=== PATIENT | male | born 1930 | race Caucasian/White ===

== ENCOUNTER 2018-02-15 20:05 | Inpatient (IN) | payer OTHER ==
--- NOTE | 2018-02-15 20:17 | EDPHY ---
H & P Stated Complaint: c/o chest pressure into L shoulder/sob x 1 day Time Seen by Provider: 02/15/18 20:17 HPI/ROS: CHIEF COMPLAINT: Chest pressure, rapid heart rate HISTORY OF PRESENT ILLNESS: The patient is an anticoagulated 87 y/o male with a history of atrial fibrillation arriving with his complaining of chest pressure and sensation of a rapid heart rate worsening over the last day. He first noticed feeling lightheaded and dizzy upon standing up from a chair yesterday. He then developed mild shortness of breath and for the last 12 hours he's had chest pressure and mild shortness of breath. He describes a "heavy, bloated indigestion feeling here," gesturing to his chest, in spite of not eating much recently. He took Zantac without improvement. He says he completed a 48-hour Holter monitor last week that he does not yet know the results of and completed an echocardiogram this morning. He is compliant with all his medications and additionally took 324mg of aspirin prior to leaving his house tonight. He has no history of prior MIs. REVIEW OF SYSTEMS: A ten system review of systems was performed and is negative with the exception of the items mentioned in the HPI. Baseline leg swelling. Past medical history: 1. Hypothyroidism 2. BPH 3. Atrial fibrillation 3. Chronic kidney disease 4. DVT 5. Hyperlipidemia 6. Nephrolithiasis 7. Diastolic dysfunction Past surgical history: 1. Bilateral knee surgery 2. Bilateral hip surgery 3. Appendectomy 4. Cholecystectomy 5. Cataract surgery Family history: Noncontributory Social history: , at bedside. Nonsmoker. Retired. [employer] Attendant: Dr. Kumar. Prior medical records reviewed including admission 08/26/15 for chest pain. General Appearance: Alert. Vital signs reviewed. HR 120. Eyes: Pupils equal and round, no conjunctival injection, no discharge. Anicteric. ENT, Mouth: Mucous membranes are moist, no oropharyngeal erythema or edema. Neck: No lymphadenopathy, supple. Respiratory: Lungs are clear to auscultation; no wheezes, rales, or rhonchi. Cardiovascular: Tachycardic rate and rhythm; no murmur, rub, or gallop. Gastrointestinal: Abdomen is soft and nontender, no masses or organomegaly. Skin: Warm and dry, no rashes on exposed skin, normal color. Back: Nontender to palpation over the thoracolumbar spine. No CVAT. Extremities: No lower extremity edema, no calf tenderness or swelling. Neurological: Alert and oriented. Moving all four extremities easily and equally. Psychiatric: Normal affect. - Personal History Tetanus Vaccine Date: 2007 - Medical/Surgical History Hx Asthma: No Hx Chronic Respiratory Disease: No Hx Diabetes: No Hx Cardiac Disease: Yes Hx Renal Disease: Yes Hx Cirrhosis: No Hx Alcoholism: No Hx HIV/AIDS: No Hx Splenectomy or Spleen Trauma: No Other PMH: Diverticulosis, Afib with cardioversion, Aortic Aneurysm, mass L kidney, Kidney stones, Macular degeneration, high cholesterol, Appy, cholecystectomy, bilat knee replacement, left hip replacement. - Social History Smoking Status: Never smoked Constitutional: Initial Vital Signs Heart Rate 114 H 02/15/18 20:10 Respiratory Rate 16 02/15/18 20:10 Blood Pressure 137/98 H 02/15/18 20:10 O2 Sat (%) 98 02/15/18 20:10 O2 Delivery Mode Room Air Allergies/Adverse Reactions: Sulfa (Sulfonamide Antibiotics) Allergy (Intermediate, Verified 02/15/18 20:14) mouth ulcers hydrocodone bitartrate [From Vicodin] Allergy (Mild, Verified 02/15/18 20:14) Rash Home Medications: Medication Instructions Recorded Tamsulosin HCl [Flomax 0.4 MG (*)] 0.8 mg PO HS 01/04/13 Atorvastatin Calcium [Lipitor 10 10 mg PO HS 02/04/13 mg (*)] Dutasteride [Avodart 0.5 MG (*)] 0.5 mg PO HS 02/04/13 Levothyroxine [Synthroid 150 mcg 150 mcg PO DAILY 03/06/14 (*)] Acetaminophen [Tylenol 325mg (*)] 325 - 650 mg PO Q4 PRN #0 tab 03/23/14 Aspirin EC [Aspirin EC 81 mg (*)] 81 mg PO HS 08/26/15 Rivaroxaban [Xarelto] 20 mg PO DAILY18 #30 tab 08/27/15 Mirabegron [Myrbetriq] 25 mg PO DAILY 02/15/18 Metoprolol Tartrate [Lopressor 25 25 mg PO BID #60 tab 02/18/18 mg (*)] diphenhydrAMINE [Benadryl Cream] 1 maeve TP Q6 PRN cream 02/18/18 Medical Decision Making - Diagnostics Imaging: I viewed and interpreted images myself ED Course/Re-evaluation: This is an anticoagulated 87 y/o male with a history of atrial fibrillation who presents with a 1-day history of chest pressure, rapid heart rate, and dyspnea. His heart rate is rapid around 120 on exam. He is otherwise well-appearing, but continues to have chest discomfort. Plan for cardiac work up including IV, labs , EKG, chest x-ray. Normal POC troponin. The 12 lead EKG was interpreted by myself. Atrial flutter vs sinus tach. See hard copy and/or "tracemaster" electronic copy for interpretation. 2055: Consulted with Dr. Anton, cardiology. He states he does not have home access to review EKGs nor can he access patient's [facility] records regarding his recent Holter monitor or echocardiogram performed today. I've sent him pictures of the EKGs for review. 2105: Dr. Anton states today's EKG shows atrial flutter. Diltazem drip and bolus ordered. Patient with normal mentation, no difficulty breathing, c/o some chest discomfort (midepigastric). Initial troponin negative. Labs reviewed. 2133: Reassessed patient and discussed findings. Recommended admission for observation, which he agrees to. I do not suspect infection. CXR without active pulmonary disease, reviewed by me. Spoke with hospitalist service. Dr. Hurt accepts admission. Differential Diagnosis: DDX includes but is not limited to afib/flutter with RVR, ACS, valvular disease , PE, infection, medication noncompliance, endocrine abnormality, volume depletion, stimulants. Critical Care Time: Thirty minutes of critical care provided by me exclusive of procedures (none performed). This included consultation with cardiology, review of records. No midlevel involement in patient care. Patient at risk of cardiovascular deterioration. - Data Points Laboratory Results: Laboratory Results 02/16/18 03:52 02/16/18 03:52 Medications Given: Discontinued Medications Al Hydroxide/Mg Hydroxide (Maalox Susp) 30 ml PO Q4HRS PRN PRN Reason: Indigestion Stop: 08/14/18 23:48 Last Admin: 02/17/18 21:53 Dose: 30 ml Aspirin (Aspirin) 324 mg PO EDNOW ONE Stop: 02/15/18 20:34 Last Admin: 02/15/18 20:48 Dose: Not Given Aspirin Buffered (Aspirin Ec) 81 mg PO HS LARON Stop: 08/15/18 20:59 Last Admin: 02/17/18 19:19 Dose: 81 mg Atorvastatin Calcium (Lipitor) 10 mg PO HS LARON Stop: 08/15/18 20:59 Last Admin: 02/17/18 19:19 Dose: 10 mg Atropine Sulfate (Atropine 1 Mg/10 Ml Syringe) 1 mg IVP ONCALL ONE Stop: 02/18/18 06:01 Last Admin: 02/18/18 09:33 Dose: Not Given Benzocaine (Hurricaine Covert) 1 each MM ONCALL ONE Stop: 02/18/18 06:01 Last Admin: 02/18/18 09:33 Dose: Not Given Diphenhydramine HCl (Benadryl Cream) 1 maeve TP Q6 PRN PRN Reason: ITCHING Stop: 08/16/18 18:24 Last Admin: 02/17/18 18:35 Dose: 1 maeve Dutasteride (Avodart) 0.5 mg PO HS LARON Stop: 08/15/18 20:59 Last Admin: 02/17/18 19:20 Dose: 0.5 mg Fentanyl (Sublimaze) 0 - 100 mcg IVP ONCALL ONE Stop: 02/18/18 06:01 Last Admin: 02/18/18 09:33 Dose: Not Given Diltiazem HCl 125 mg/ Dextrose 125 mls @ 0 mls/hr IV EDNOW ONE; As Directed PRN Reason: Protocol Stop: 02/15/18 21:09 Last Admin: 02/15/18 21:42 Dose: Not Given Diltiazem/Dextrose (Diltiazem 125mg/125ml (Premix)) 125 mls @ 0 mls/hr IV EDNOW ONE; As Directed PRN Reason: Protocol Stop: 02/15/18 21:31 Last Admin: 02/15/18 21:39 Dose: 125 mls Sodium Chloride (Ns) 1,000 mls @ 75 mls/hr IV CONT LARON Stop: 08/14/18 22:44 Last Admin: 02/16/18 13:10 Dose: 1,000 mls Diltiazem/Dextrose (Diltiazem 125mg/125ml (Premix)) 125 mls @ 0 mls/hr IV CONT LARON; Per Protocol PRN Reason: Protocol Stop: 08/14/18 22:59 Last Admin: 02/16/18 21:58 Dose: 125 mls Sodium Chloride (Ns) 500 mls @ 0 mls/hr IV ONCALL ONE PRN Reason: TKO Stop: 02/18/18 06:01 Last Admin: 02/18/18 09:33 Dose: Not Given Levothyroxine Sodium (Synthroid) 150 mcg PO DAILY [facility] Stop: 08/15/18 08:59 Last Admin: 02/18/18 07:24 Dose: 150 mcg Metoprolol Tartrate (Lopressor) 25 mg PO BID [facility] Stop: 08/16/18 13:44 Last Admin: 02/18/18 07:24 Dose: 25 mg Miscellaneous Medication (Mirabegron [Myrbetriq]) 25 mg PO DAILY [facility] Stop: 08/15/18 08:59 Last Admin: 02/18/18 09:47 Dose: Not Given Nitroglycerin (Nitrostat) 0.4 mg SL Q5M PRN PRN Reason: Chest Pain Stop: 08/16/18 01:51 Last Admin: 02/17/18 02:14 Dose: 1 tab Rivaroxaban (Xarelto) 20 mg PO DAILY18 [facility] Stop: 08/15/18 17:59 Last Admin: 02/17/18 17:57 Dose: 20 mg Tamsulosin HCl (Flomax) 0.8 mg PO HS [facility] Stop: 08/15/18 20:59 Last Admin: 02/17/18 19:19 Dose: 0.8 mg Point of Care Test Results: Chemistry 02/15/18 20:32 POC Troponin I 0.03 ng/mL ng/mL (0.00-0.08) Departure - Departure Disposition: [facility] Acute Clinical Impression: Atrial flutter Qualifiers: Atrial flutter type: unspecified Qualified Code(s): I48.92 - Unspecified atrial flutter Condition: Fair Report Scribed for: Maura Phillips Report Scribed by: Shonna Us Date of Report: 02/15/18 Time of Report: 20:33 Physician Review and Approval Statement: 02/15/18 20:17 Portions of this note were transcribed by the adjunct faculty for medical terminology. I, Dr. Maura Phillips, personally performed the history, physical exam, and medical decision- making; and confirmed the accuracy of the information in the transcribed note.
[2018-02-15] MEDS ORDERED: ASPIRIN 81 MG CHEWABLE TAB PO ONE (20:33)
[2018-02-15 20:39] LABS: PLATELET COUNT 156 10^3/uL (150-400)
[2018-02-15] MEDS ORDERED: DILTIAZEM 125 MG in D5W 125 ML IV ONE (21:08)
[2018-02-15] MEDS ORDERED: DILTIAZEM HCL/D5W 125 ML IV ONE (21:30)
[2018-02-15] MEDS ORDERED: ACETAMINOPHEN 325 MG TAB PO PRN (22:31)
[2018-02-15] MEDS ORDERED: ONDANSETRON 4 MG/2 ML VIAL IVP PRN (22:31)
[2018-02-15] MEDS ORDERED: ONDANSETRON DISINTEGRATING 4 MG TAB PO PRN (22:31)
[2018-02-15] MEDS: DILTIAZEM HCL/D5W 125 ML IV SCH (23:19)
[2018-02-15] MEDS: NS 1,000 ML IV SCH (23:41)
--- NOTE | 2018-02-16 00:44 | GHP ---
DATE OF ADMISSION: 02/15/2018 PRIMARY OB GYN PHYSICIAN ASSISTANT: Herman Kumar MD. CHIEF COMPLAINT: Chest pressure and palpitations. HISTORY OF PRESENT ILLNESS: This is a very pleasant 87-year-old gentleman with a past medical histor y significant for paroxysmal atrial fibrillation on Xarelto, hyperlipidemia, BPH, hypothyroidism, his tory of diastolic dysfunction, CKD stage 3, who presents to the emergency department today with compl aints of worsening dyspnea, palpitations, and central chest discomfort. Patient initially thought he was having some heartburn. He did try to take some Zantac with some minimal improvement in that dis comfort. He continued to have palpitations, however, and did have one episode of lightheadedness. P atient reports chronic lower extremity edema without any acute changes. No orthopnea or PND. Adolfo t took 324 mg of aspirin before leaving the home for the ED. He has not had any previous MIs. Patient reports that he was seen by Dr. Kumar a week ago. He was hopeful that they would be able to take him off the metoprolol and Xarelto as his A-fib has been relatively controlled. He did under go an echocardiogram and a 48-hour Holter monitor report of which he has not yet been advised as he d oes have a followup appointment scheduled for one week. REVIEW OF SYSTEMS: Ten systems were reviewed and negative except as noted above. ALLERGIES: Sulfa and hydrocodone. HOME MEDICATIONS: As per EMR. Flomax 0.8 mg p.o. at h.s., Xarelto 20 mg p.o. daily, Myrbetriq 25 mg p.o. daily, metoprolol tartrate 25 mg p.o. b.i.d., levothyroxine 150 mcg p.o. daily, Avodart 0.5 mg p.o. at h.s., atorvastatin 10 mg p.o. h.s., aspirin 81 mg p.o. at h.s., Tylenol 325 to 650 mg p.o. q. 4 hours p.r.n. PAST MEDICAL HISTORY: Significant for hyperlipidemia, paroxysmal atrial fibrillation on Xarelto, BPH , hypothyroidism, diverticulosis, aortic aneurysm, left kidney mass, nephrolithiasis, macular degener ation, diastolic dysfunction, CKD stage 3, history of DVT remotely. PAST SURGICAL HISTORY: Significant for appendectomy, cholecystectomy, bilateral total knee arthropla sty, bilateral total hip arthroplasty, and history of cardioversion for his atrial fibrillation. FAMILY HISTORY: Mother with lymphoma and . SOCIAL HISTORY: Patient is with 3 adult children. He is a retired middle school humanities teacher. H e rarely drinks any wine, less than 3 times monthly. No illicit drugs or tobacco use. CODE STATUS: Full. However, patient notes that he does not want any prolonged life support. PHYSICAL EXAMINATION: VITAL SIGNS: Upon arrival to the emergency department, blood pressure was 137 /98, heart rate 114, respiratory rate 16, O2 saturation 98% on room air. Current vitals available: Blood pressure is 114/84, heart rate is 117. At bedside, patient's heart rate did decrease down to t he 80s but remained irregular. Respiratory rate 16, O2 sat 95% on room air, temperature 36.6. GENER AL: No acute distress. Very pleasant elderly gentleman who is sitting up in bed. Appears younger t cuevas stated age. HEAD: Normocephalic, atraumatic. EYES: Extraocular muscles are grossly intact. P upils equal, round, reactive to light bilaterally and symmetric. Lens reflexes appreciated in the le ft eye only. No scleral icterus or conjunctival injection. ENT: Mucous membranes appear moist. No oropharyngeal erythema or exudates. No nasal discharge. CV: Irregularly irregular rhythm with a r ate in the 80s to 90s. No chest wall tenderness to palpation. RESPIRATORY: Unlabored breathing. L ungs are clear to auscultation bilaterally. No wheezes, rales, or rhonchi appreciated. ABDOMEN: Po sitive bowel sounds. Soft, nontender to palpation. No rebound, guarding, or masses appreciated. No ndistended abdomen. : No suprapubic tenderness to palpation. No Li catheter in place. MUSCUL OSKELETAL: Strength grossly intact. Patient able to sit up independently. He moves all extremities . NEURO: Grossly nonfocal. No facial drooping. Moves all extremities as noted above. PSYCH: Tho ught process, content, and questions are appropriate. Patient is pleasant and cooperative. LABORATORY STUDIES: WBC is 5.44, H and H are 15.4 and 45.6, MCV 94.2, platelet count is 156. No ban ds. Sodium is 139, potassium 3.7, chloride 107, CO2 is 23, anion gap of 9, BUN 18, creatinine is 1.1 GFR greater than 60, glucose is 101, calcium is 9.2. Troponin point of care 0.03. TSH 0.76, free T 4 1.64. EKG was reviewed myself, atrial flutter, rate 120s, QTc [address] elevations. Mil d ST depressions lateral leads, likely rate related. Chest x-ray image report was reviewed, negative for acute cardiac disease. Heart size upper limits o f normal. Tortuosity of descending thoracic aorta pleasant. Few fibrotic streaks in the lung bases. ASSESSMENT AND PLAN: A very pleasant 87-year-old gentleman who presents to the emergency department with complaints of chest discomfort and palpitations. 1. Atrial flutter with rapid ventricular rate. The patient is normally on metoprolol which he has b een compliant with. He has not had any issues with his atrial fibrillation in quite some time. He h ad recently undergone echocardiogram and Holter monitor, the results of which are still pending. Rat e has improved significantly status post a bolus and followed by drip of diltiazem, which we will con tinue overnight. Hopefully patient will convert to normal sinus rhythm by morning. However, we will make the patient n.p.o. except for some sips of water after midnight pending cardiology evaluation s hould need for cardioversion arise. Continue with Xarelto. 2. Chest pressure. Patient reports that his symptoms do feel more like heartburn, substernal burnin g. It did improve with Zantac. We will go ahead and give the patient a dose of Mylanta and see if t his will assist with his symptoms. 3. Hypothyroidism. We will be checking TFTs should this be contributing to patient's symptoms. Con tinue his levothyroxine otherwise. 4. Hyperlipidemia. Resume statin. 5. Benign prostatic hypertrophy. Continue Avodart and Flomax. 6. Diastolic dysfunction without any evidence of exacerbation. We will provide patient with some funes pplemental normal saline overnight. Monitor his fluid size closely. 7. Chronic kidney disease, stage 3. Appears close to baseline. 8. Chronic anticoagulation with Xarelto. We will continue as noted above. 9. Fluid, electrolyte, nutrition. IV fluids at 75 normal saline. Electrolytes are adequate and do not require replacement. Nutrition cardiac diet and then n.p.o. after midnight except for sips of wa ter. This will be pending cardiology consultation. 10. Prophylaxis. On Xarelto. SCDs as tolerated. 11. Cor status is full. Patient does not want prolonged life support. 12. Disposition. Patient admitted to observation status on PCU for close cardiac monitoring and con tinued drip. Should patient require additional hospital stay or not be responsive or conv ert by tomorrow, consider transition to inpatient status for additional intervention and treatment. /[id number]/MODL
--- NOTE | 2018-02-16 00:48 | CPEKG ---
Test Reason : OPEN Blood Pressure : / mmHG Vent. Rate : 119 BPM Atrial Rate : 120 BPM P-R Int : 280 ms QRS Dur : 096 ms QT Int : 341 ms P-R-T Axes : -48 -51 094 degrees QTc Int : 480 ms Prolonged NM interval Left anterior fascicular block Atrial flutter Confirmed by Maura Phillips ([id number]) on 02/16/2018 12:47:50 AM Referred By: Confirmed By:Maura Phillips
[2018-02-16] MEDS: MAG HYDROX/AL HYDROX/SIMETH 30 ML UDCUP PO PRN ×2 (07:50→13:12)
--- NOTE | 2018-02-16 09:52 | PDCARPN ---
Cardiology Progress Note Chief Complaint: No cardiovascular complaints today. Assessment/Plan: Assessment: Patient is an 87 y/o male, well known to [facility] (Dr. Desire Kumar) with history of pAF (on Xarelto with [id number] score of 3 for age and HTN), HLP, HTN, and CRI, with noted history of diastolic dysfunction, who presented to [facility] with complaints of chest pressure and rapid heart rate. Patient appreciated symptoms initially about 24 hours prior to ER presentation. Mild dyspnea accompanied the symptom of chest pressure. The patient also noted left shoulder and arm discomfort, but quickly reported that it could represent arthritis, since joint pains are noted. The patient also had symptoms felt to be GERD like. Zantac at home yielded no improvement, but therapy in the ER seemed to do more for the symptoms noted. Recent echocardiography (02-15-18) with normal systolic function, no comment on diastolic function, and mild MR/AI noted. Holter monitor from 02-08-18 with normal sinus rhythm and an average heart rate of 68 bpm. No evidence of atrial fibrillation was noted on this study. [facility] with discussion about cessation of anticoagulation and possibly metoprolol given a lack of atrial fibrillation being noted. Telemetry with ongoing atrial flutter with controlled ventricular rates (~80 bpm). Patient is currently without symptoms. Plan: Uncertain etiology for the episode of atrial flutter that has been noted. (1) Will make arrangements for Syl MPI today (2) Would continue therapy on IV CCB for rate control (3) Continue anticoagulation given the current rhythm (4) ASA therapy should continue as at present (5) Lipitor should continue for HLP, and maintain annual assessment of cholesterol and LFT (6) Maintain synthroid given history of hypothyroidism Subjective: No cardiovascular complaints Reviewed/Discussed With: hospitalist Objective: Vital Signs (8 Hrs) Temp Pulse Resp BP Pulse Ox 02/16/18 07:46 36.6 C 91 19 128/86 H 94 02/16/18 03:40 36.6 C 90 16 120/79 92 Intake/Output (24 Hrs) 02/15/18 02/16/18 02/17/18 05:59 05:59 05:59 Intake Total 530 Balance 530 Intake: Oral (ml) 125 IV Infused (ml) 405 Ns 1,000 ml @ 75 mls/hr 405 IV CONT LARON Rx#: [id number] Other: Weight 99.8 kg Intake Quantity Yes Sufficient Number of Voids Toilet 2 Result Diagrams: 02/16/18 03:52 02/16/18 03:52 Telemetry: atrial flutter with 3:1 conduction - Physical Exam Constitutional: WDWN, healthy appearing, no apparent distress Eyes: PERRL, EOMI Ears, Nose, Mouth, Throat: moist mucous membranes Cardiovascular: regular rate and rhythm, no murmurs, no rubs, other (patient noted to be in atrial flutter) Peripheral Pulses: 2+: dorsalis-pedis (R), dorsalis-pedis (L) Respiratory: clear to auscultate bilat, no crackles, no wheezes Gastrointestinal: normoactive bowel sounds Skin: no rashes, other (trace edema) Musculoskeletal: no muscular tenderness Neurologic: AAOx3, CN II-XII grossly intact Psychiatric: cooperative, interactive, following commands ICD10 Worksheet Patient Problems: Problems Problem Status Onset Atrial fibrillation and flutter Acute Chest pain Acute Primary osteoarthritis of right hip Acute
[2018-02-16] MEDS: LEVOTHYROXINE 150 MCG TAB PO SCH (10:09)
[2018-02-16] MEDS: Mirabegron [Myrbetriq] 25 MG PO SCH (10:10)
[2018-02-16] MEDS ORDERED: REGADENOSON 0.4 MG/5 ML SYR IVP ONE (10:59)
--- NOTE | 2018-02-16 11:56 | PDCARST ---
CAR Stress Test Results Type of Stress Test: Sly stress testing Indication: Chest tightness with radiation into left shoulder/arm Description of Procedure: After consents were obtained, and the procedure was explained, infusion was given while blood pressure, heart rate (via live tele), respiratory rate, and oxygen sats were monitor. Brief period of dyspnea without haemodynamic changes was noted, and passed. No ECG changes were noted. Unremarkable recovery. Impression: Unremarkable Syl infusion Conclusion: Stress images are pending. If defect is noted, would pursue resting images.
[2018-02-16] MEDS: NS 1,000 ML IV SCH (13:10)
--- NOTE | 2018-02-16 15:22 | HOSPPROG ---
Hospitalist Progress Note Assessment/Plan: A Flutter with RVR - Hx of A Fib, on Metoprolol and Xarelto - Elevated HR on admission, s/p diltiazem bolus then gtt with improvement - Cardiology consulted, Dr. Caro, recommending continuing IV CCB for now - Continue home Xarelto Chest Pressure - Reports substernal burning, improved s/p Zantac - Cardiology ordered MPS this morning, f/u results - Trop negative overnight, EKG without acute ischemic changes HLD - Continue home statin BPH - Continue Avodart and Flomax CKD Stage 3 - Appears to be at baseline FEN: Cardiac, NPO at midnight Code: Full DVT PPx: Home Xarelto Dispo: Pending clinical course Subjective: Patient reports feeling well this morning Objective: Vital Signs Temp Pulse Resp BP Pulse Ox 36.4 C 113 H 20 115/85 H 93 02/16/18 15:17 02/16/18 15:17 02/16/18 15:17 02/16/18 15:17 02/16/18 15:17 Laboratory Results 02/16/18 03:52 02/16/18 03:52 02/15/18 02/16/18 02/17/18 05:59 05:59 05:59 Intake Total 530 Balance 530 - Physical Exam Constitutional: no apparent distress Eyes: PERRL Ears, Nose, Mouth, Throat: moist mucous membranes Cardiovascular: irregularly irregular, tachycardia Respiratory: no respiratory distress Skin: warm Neurologic: AAOx3 Psychiatric: interacting appropriately ICD10 Worksheet Patient Problems: Problems Problem Status Onset Atrial fibrillation and flutter Acute Chest pain Acute Primary osteoarthritis of right hip Acute
--- NOTE | 2018-02-16 15:56 | ASMTCMCOM ---
CM Note CM Note Notes: Patient with multiple comorbidities admitted with chest pain and palpitations. Had part one of stresstest today and will need the resting part of his stress test tomorrow AM. He is normally independent, lives with his . No therapies have been ordered, and no discharge needs are identified. CM available if this changes. Current CM Discharge plan: independent Date Signed: 02/16/2018 03:56 PM Electronically Signed By:Radha Valenzuela RN
[2018-02-16] MEDS: RIVAROXABAN 20 MG TAB PO SCH (17:40)
[2018-02-16] MEDS: TAMSULOSIN HCL 0.4 MG CAP PO SCH (19:37)
[2018-02-16] MEDS: DUTASTERIDE 0.5 MG CAP PO SCH (19:37)
[2018-02-16] MEDS: ASPIRIN EC 81 MG TAB PO SCH (19:37)
[2018-02-16] MEDS: ATORVASTATIN CALCIUM 10 MG TAB PO SCH (19:37)
[2018-02-16] MEDS: DILTIAZEM HCL/D5W 125 ML IV SCH (21:58)
[2018-02-17] MEDS ORDERED: NITROGLYCERIN 0.4 MG BTL SL ONE (01:56)
[2018-02-17] MEDS: NITROGLYCERIN 0.4 MG BTL SL PRN ×2 (01:59→02:14)
[2018-02-17] MEDS: LEVOTHYROXINE 150 MCG TAB PO SCH (08:41)
[2018-02-17] MEDS: Mirabegron [Myrbetriq] 25 MG PO SCH (08:46)
--- NOTE | 2018-02-17 08:47 | PDMN ---
Medical Necessity Medical necessity: MCG: M575 ventricular arrhythmias A-2 days: 87 yr old. pt presents with chest pressure and palpitations, worsening dyspnea, PMH: hyperlipidemia, Par. Afib- on Xarelto, AA, Diastolic dysfunction, CKD stage 3, BPH, hypothyroidism, diverticulosis, L kidney mass, nephrolithiasis, macular degeneration, remote DVT. - pt cont. to have tachycardia, status changed to INPT 02/16 for ongoing tachycardia > 2 MN- S/P diltiazem bolus and gtt, cards recommends ongoing IV CCB, IVF, anticoag. ASA,
--- NOTE | 2018-02-17 13:10 | PDCARPN ---
Cardiology Progress Note Chief Complaint: No cardiovascular complaints at present Assessment/Plan: Assessment: 02-17-18 Patient is doing well today, but remains in atrial flutter (at least with the last documentation since telemetry is currently off). No cardiovascular complaints of chest pains or pressure. No iza awareness of irregular heart rate. Stress testing without ischaemia or infarction patterns noted, but last night there was an event that led to nitro SL, and relief (according to the patient) of symptoms. Compliance with Xarelto has been good. Ongoing atrial flutter with rapid ventricular response. Anesthesia is not available until after 1500, without certainty on when they will be available. 02-16-18 Patient is an 87 y/o male, well known to Laurent Douglas (Dr. Desire Kumar) with history of pAF (on Xarelto with [id number] score of 3 for age and HTN), HLP, HTN, and CRI, with noted history of diastolic dysfunction, who presented to [facility] with complaints of chest pressure and rapid heart rate. Patient appreciated symptoms initially about 24 hours prior to ER presentation. Mild dyspnea accompanied the symptom of chest pressure. The patient also noted left shoulder and arm discomfort, but quickly reported that it could represent arthritis, since joint pains are noted. The patient also had symptoms felt to be GERD like. Zantac at home yielded no improvement, but therapy in the ER seemed to do more for the symptoms noted. Recent echocardiography (02-15-18) with normal systolic function, no comment on diastolic function, and mild MR/AI noted. Holter monitor from 02-08-18 with normal sinus rhythm and an average heart rate of 68 bpm. No evidence of atrial fibrillation was noted on this study. The last office note with Laurent [facility] with discussion about cessation of anticoagulation and possibly metoprolol given a lack of atrial fibrillation being noted. Telemetry with ongoing atrial flutter with controlled ventricular rates (~80 bpm). Patient is currently without symptoms. Plan: (1) Would feed patient now (2) NPO after midnight (3) Stop IV CCB therapy (4) Resume metoprolol (25 mg twice per day) (5) ASA should continue given CV risks (6) Statins should continue for HLP (7) Plan for LEANDRA with possible cardioversion out of atrial flutter in the morning. Subjective: No cardiovascular complaints at present Reviewed/Discussed With: hospitalist Objective: Vital Signs (8 Hrs) Temp Pulse Resp BP Pulse Ox 02/17/18 11:29 36.6 C 78 12 114/86 H 95 02/17/18 07:53 36.4 C 117 H 14 122/87 H 96 Intake/Output (24 Hrs) 02/16/18 02/17/18 02/18/18 05:59 05:59 05:59 Intake Total 2115 Balance 2115 Intake: Oral (ml) 350 IV Infused (ml) 1765 Diltiazem HCl/D5w 125 ml 65 @ Per Protocol IV CONT LARON Rx#:[id number] Ns 1,000 ml @ 75 mls/hr 1700 IV CONT LARON Rx#: [id number] Other: Weight 100.4 kg Intake Quantity Yes Sufficient Number of Voids Toilet 2 Number of Stools Toilet 1 Result Diagrams: 02/17/18 02:45 02/17/18 02:45 Cardiac Labs: Cardiac Lab Results (72 Hrs) 02/17/18 02:45 Troponin I 0.027 Telemetry: atrial flutter with rapid ventricular response - Physical Exam Constitutional: WDWN, healthy appearing, no apparent distress Eyes: PERRL, EOMI Ears, Nose, Mouth, Throat: moist mucous membranes Cardiovascular: no murmurs, irregularly irregular, other (tachycardia) Peripheral Pulses: 2+: dorsalis-pedis (R), dorsalis-pedis (L) Respiratory: clear to auscultate bilat, no crackles, no wheezes Gastrointestinal: normoactive bowel sounds Skin: no edema Musculoskeletal: no muscular tenderness Neurologic: AAOx3, CN II-XII grossly intact Psychiatric: cooperative, interactive, following commands ICD10 Worksheet Patient Problems: Problems Problem Status Onset Atrial fibrillation and flutter Acute Chest pain Acute Primary osteoarthritis of right hip Acute
--- NOTE | 2018-02-17 13:26 | HOSPPROG ---
Hospitalist Progress Note Assessment/Plan: A Flutter with RVR - Hx of A Fib, on Metoprolol and Xarelto - Elevated HR on admission, s/p diltiazem bolus then gtt with improvement - Cardiology consulted, Dr. Caro, recommending continuing IV CCB for now, likely cardioversion this afternoon - Continue home Xarelto Chest Pressure - Reports substernal burning, improved s/p Zantac - Had an episode of chest pain overnight which improved with Nitro - Cardiology ordered MPS, negative Per Cardiology - Trop negative, EKG without acute ischemic changes HLD - Continue home statin BPH - Continue Avodart and Flomax CKD Stage 3 - Appears to be at baseline FEN: Cardiac, NPO at midnight Code: Full DVT PPx: Home Xarelto Dispo: Pending clinical course Subjective: Patient reports episode of chest pain overnight which resolved s/p Nitro administration Objective: Vital Signs Temp Pulse Resp BP Pulse Ox 36.6 C 78 12 114/86 H 95 02/17/18 11:29 02/17/18 11:29 02/17/18 11:29 02/17/18 11:29 02/17/18 11:29 Laboratory Results 02/17/18 02:45 02/17/18 02:45 02/16/18 02/17/18 02/18/18 05:59 05:59 05:59 Intake Total 2114 Balance 2114 - Physical Exam Constitutional: no apparent distress Eyes: PERRL Ears, Nose, Mouth, Throat: moist mucous membranes Cardiovascular: irregularly irregular, tachycardia Respiratory: no respiratory distress Skin: warm Neurologic: AAOx3 Psychiatric: interacting appropriately ICD10 Worksheet Patient Problems: Problems Problem Status Onset Atrial fibrillation and flutter Acute Chest pain Acute Primary osteoarthritis of right hip Acute
[2018-02-17] MEDS ORDERED: METOPROLOL TARTRATE 25 MG TAB PO PRN (13:49)
[2018-02-17] MEDS: METOPROLOL TARTRATE 25 MG TAB PO SCH ×2 (13:53→21:53)
[2018-02-17] MEDS: MAG HYDROX/AL HYDROX/SIMETH 30 ML UDCUP PO PRN ×2 (14:02→21:53)
--- NOTE | 2018-02-17 15:48 | CPEKG ---
Test Reason : OPEN Blood Pressure : / mmHG Vent. Rate : 122 BPM Atrial Rate : 120 BPM P-R Int : 152 ms QRS Dur : 090 ms QT Int : 338 ms P-R-T Axes : 086 -45 000 degrees QTc Int : 482 ms Atrial flutter Left anterior fascicular block Abnormal R-wave progression, early transition Nonspecific repol abnormality, diffuse leads Confirmed by Vic Caro ([id number]) on 02/17/2018 3:48:15 PM Referred By: Confirmed By:Vic Caro
--- NOTE | 2018-02-17 15:48 | CPEKG ---
Test Reason : OPEN Blood Pressure : / mmHG Vent. Rate : 106 BPM Atrial Rate : 118 BPM P-R Int : 154 ms QRS Dur : 090 ms QT Int : 416 ms P-R-T Axes : 096 -59 264 degrees QTc Int : 553 ms Atrial flutter Left anterior fascicular block Abnormal R-wave progression, early transition Repol abnrm, severe global ischemia (LM/MVD) Prolonged QT interval Confirmed by Vic Caro ([id number]) on 02/17/2018 3:47:24 PM Referred By: Confirmed By:Vic Caro
--- NOTE | 2018-02-17 15:53 | CPEKG ---
Test Reason : OPEN Blood Pressure : / mmHG Vent. Rate : 118 BPM Atrial Rate : 118 BPM P-R Int : 117 ms QRS Dur : 091 ms QT Int : 377 ms P-R-T Axes : 119 -29 116 degrees QTc Int : 529 ms Atrial flutter (2:1 conduction) Borderline left axis deviation Abnormal R-wave progression, early transition Repol abnrm, severe global ischemia (LM/MVD) Prolonged QT interval Confirmed by Vic Caro ([id number]) on 02/17/2018 3:53:04 PM Referred By: Confirmed By:Vic Caro
[2018-02-17] MEDS: RIVAROXABAN 20 MG TAB PO SCH (17:57)
[2018-02-17] MEDS ORDERED: DIPHENHYDRAMINE CREAM TP PRN (18:25)
[2018-02-17] MEDS: TAMSULOSIN HCL 0.4 MG CAP PO SCH (19:19)
[2018-02-17] MEDS: ASPIRIN EC 81 MG TAB PO SCH (19:19)
[2018-02-17] MEDS: ATORVASTATIN CALCIUM 10 MG TAB PO SCH (19:19)
[2018-02-17] MEDS: DUTASTERIDE 0.5 MG CAP PO SCH (19:20)
[2018-02-18] MEDS ORDERED: fentaNYL 100 MCG/2 ML INJ IVP ONE (06:00)
[2018-02-18] MEDS ORDERED: BENZOCAINE UNIT DOSE SPRAY HURRICAINE MM ONE (06:00)
[2018-02-18] MEDS ORDERED: NS 500 ML IV ONE (06:00)
[2018-02-18] MEDS ORDERED: ATROPINE SULFATE 1 MG/10 ML SYR IVP ONE (06:00)
[2018-02-18] MEDS: METOPROLOL TARTRATE 25 MG TAB PO SCH (07:24)
[2018-02-18] MEDS: LEVOTHYROXINE 150 MCG TAB PO SCH (07:24)
[2018-02-18 07:29] VITALS: BP 119/87
[2018-02-18] MEDS ORDERED: PROPOFOL 200 MG/20 ML VIAL ONE (08:21)
--- NOTE | 2018-02-18 08:21 | PDANEPAE ---
ANE Past Medical History - Cardiovascular History Hx Hypertension: Yes Hx Arrhythmias: Yes Hx Coronary Artery / Peripheral Vascular Disease: No Hx CHF / Valvular Disease: No Cardiovascular History Comment: AFIB X1- LAST 2012- POSS R/T THYROID MED CHANGE. CP IN PAST DX ESOPHOGEAL, 2012 - Pulmonary History Hx COPD: No Hx Asthma/Reactive Airway Disease: No Hx Recent Upper Respiratory Infection: No Hx Oxygen in Use at Home: No Hx Sleep Apnea: No Pulmonary History Comment: DENIES SOB W STAIRS - Neurologic History Hx Cerebrovascular Accident: No Hx Seizures: No Hx Dementia: No - Endocrine History Hx Diabetes: No Endocrine History Comment: LOW THYROID- ON MEDS - Renal History Hx Renal Disorders: Yes Renal History Comment: BPH, ON MEDS. KIDNEY STONES, PASSED X1, PROC X1 - Liver History Hx Hepatic Disorders: No - Neurological & Psychiatric Hx Hx Neurological and Psychiatric Disorders: No - Cancer History Hx Cancer: Yes Cancer History Comment: MELANOMA - Congenital Disorder History Hx Congenital Disorders: No - GI History Hx Gastrointestinal Disorders: Yes Gastrointestinal History Comment: POLYP. CONSTIPATION - Other Health History Other Health History: OA R HIP LOW BACK. DVT '04 ALAYNA CALVES POST ALAYNA KNEE REPL - Chronic Pain History Chronic Pain: Yes (R HIP LOW BACK) - Surgical History Prior Surgeries: CARDIOVERSION '13. APPY. NICOLLE. L LYNN. ALAYNA TKA. SCOPE R KNEE X2. NASAL SURG. MELANOMA REM '98. DENTAL IMPLANT ANE Review of Systems Review of Systems: ANE Patient History - Allergies Allergies/Adverse Reactions: Sulfa (Sulfonamide Antibiotics) Allergy (Intermediate, Verified 02/15/18 20:14) mouth ulcers hydrocodone bitartrate [From Vicodin] Allergy (Mild, Verified 02/15/18 20:14) Rash - Home Medications Home Medications: Tamsulosin HCl [Flomax 0.4 MG (*)] 0.8 mg PO HS 01/04/13 [Last Taken 02/14/18] Atorvastatin Calcium [Lipitor 10 mg (*)] 10 mg PO HS 02/04/13 [Last Taken ] Dutasteride [Avodart 0.5 MG (*)] 0.5 mg PO HS 02/04/13 [Last Taken 02/14/18] Levothyroxine [Synthroid 150 mcg (*)] 150 mcg PO DAILY 03/06/14 [Last Taken ] Aspirin EC [Aspirin EC 81 mg (*)] 81 mg PO HS 08/26/15 [Last Taken 02/14/18] Mirabegron [Myrbetriq] 25 mg PO DAILY 02/15/18 [Last Taken 02/15/18] - Smoking Hx Smoking Status: Never smoked - Family Anes Hx Family Hx Anesthesia Complications: NONE ANE Labs/Vital Signs - Labs Result Diagrams: 02/17/18 02:45 02/17/18 14:00 - Vital Signs Blood Pressure: 119/87 Heart Rate: 109 Respiratory Rate: 18 O2 Sat (%): 94 Height: 193.04 cm Weight: 100.698 kg ANE Physical Exam - Airway Mallampati Score: Class 2 - ASA Status ASA Status: III ANE Anesthesia Plan Total IV Anesthesia: Yes
[2018-02-18] MEDS ORDERED: ATROPINE SULFATE 1 MG/10 ML SYR ONE (08:24)
[2018-02-18] MEDS ORDERED: NALOXONE HCL 0.4 MG/ML INJ IVP PRN (08:53)
[2018-02-18] MEDS ORDERED: NS 500 ML IV PRN (08:53)
[2018-02-18] MEDS ORDERED: ONDANSETRON 4 MG/2 ML VIAL IVP PRN (08:53)
[2018-02-18] MEDS ORDERED: fentaNYL 100 MCG/2 ML INJ IVP PRN (08:53)
--- NOTE | 2018-02-18 08:55 | PDCARPN ---
Cardiology Progress Note Chief Complaint: No cardiovascular complaints this morning. Uneventful night Assessment/Plan: Assessment: 02-18-18 Patient doing well this morning. Switch to metoprolol (outpatient medication) off CCB IV therapy. Heart rates were still elevated (~110 bpm) with flutter pattern noted on telemetry. Plans for LEANDRA and possible cardioversion this morning. No cardiovascular complaints of chest pains or pressure. Uncertain etiology for the complaints of chest pains noted night prior. 02-17-18 Patient is doing well today, but remains in atrial flutter (at least with the last documentation since telemetry is currently off). No cardiovascular complaints of chest pains or pressure. No iza awareness of irregular heart rate. Stress testing without ischaemia or infarction patterns noted, but last night there was an event that led to nitro SL, and relief (according to the patient) of symptoms. Compliance with Xarelto has been good. Ongoing atrial flutter with rapid ventricular response. Anesthesia is not available until after 1500, without certainty on when they will be available. 02-16-18 Patient is an 87 y/o male, well known to Laurent Douglas (Dr. Desire Kumar) with history of pAF (on Xarelto with [id number] score of 3 for age and HTN), HLP, HTN, and CRI, with noted history of diastolic dysfunction, who presented to [facility] with complaints of chest pressure and rapid heart rate. Patient appreciated symptoms initially about 24 hours prior to ER presentation. Mild dyspnea accompanied the symptom of chest pressure. The patient also noted left shoulder and arm discomfort, but quickly reported that it could represent arthritis, since joint pains are noted. The patient also had symptoms felt to be GERD like. Zantac at home yielded no improvement, but therapy in the ER seemed to do more for the symptoms noted. Recent echocardiography (02-15-18) with normal systolic function, no comment on diastolic function, and mild MR/AI noted. Holter monitor from 02-08-18 with normal sinus rhythm and an average heart rate of 68 bpm. No evidence of atrial fibrillation was noted on this study. The last office note with Laurent Douglas with discussion about cessation of anticoagulation and possibly metoprolol given a lack of atrial fibrillation being noted. Telemetry with ongoing atrial flutter with controlled ventricular rates (~80 bpm). Patient is currently without symptoms. Plan: (1) LEANDRA with possible cardioversion this morning (patient was NPO after midnight last night) (2) Metoprolol for HTN and some degree of rate/rhythm control should continue (3) ASA should continue (4) Statins for HLP (5) Will monitor on tele post LEANDRA/cardioversion Discharge planning Subjective: No cardiovascular complaints this morning Objective: Vital Signs (8 Hrs) Temp Pulse Resp BP Pulse Ox 02/18/18 08:20 109 H 18 119/87 H 94 02/18/18 07:28 36.6 C 109 H 18 119/87 H 94 02/18/18 05:46 36.9 C 93 15 117/82 H 94 Intake/Output (24 Hrs) 02/17/18 02/18/18 02/19/18 05:59 05:59 05:59 Intake Total 2114 1100 Balance 2114 1100 Intake: Oral (ml) 350 700 IV Infused (ml) 1765 400 Diltiazem HCl/D5w 125 ml 65 75 @ Per Protocol IV CONT LARON Rx#:[id number] Ns 1,000 ml @ 75 mls/hr 1700 325 IV CONT LARON Rx#: [id number] Other: Weight 100.4 kg 100.698 kg 100.698 kg Intake Quantity Yes Sufficient Number of Voids Toilet 2 Number of Stools Toilet 1 Result Diagrams: 02/17/18 02:45 02/17/18 14:00 Cardiac Labs: Cardiac Lab Results (72 Hrs) 02/17/18 02/17/18 14:00 02:45 Troponin I 0.015 0.027 Telemetry: Atrial flutter with 2:1 conduction - Physical Exam Constitutional: WDWN, healthy appearing, no apparent distress Eyes: PERRL, EOMI Ears, Nose, Mouth, Throat: moist mucous membranes Cardiovascular: regular rate and rhythm (flutter pattern on tele), no murmurs, pulses symmetric bilat, No jugular vein distention Peripheral Pulses: 2+: dorsalis-pedis (R), dorsalis-pedis (L) Respiratory: clear to auscultate bilat, no crackles, no wheezes Gastrointestinal: normoactive bowel sounds Skin: no rashes, no edema Musculoskeletal: no muscular tenderness Neurologic: AAOx3, CN II-XII grossly intact Psychiatric: cooperative, interactive, following commands ICD10 Worksheet Patient Problems: Problems Problem Status Onset Atrial fibrillation and flutter Acute Chest pain Acute Primary osteoarthritis of right hip Acute
--- NOTE | 2018-02-18 08:55 | POSTANESTH ---
Post Anesthetic Evaluation Cardiovascular Status: Normal, Stable Respiratory Status: Normal, Stable Level of Consciousness/Mental Status: Can Participate in Eval Pain Control: Adequate, Prn Tx Ordered Nausea/Vomiting Control: Adequate, Prn Tx Ordered Complications Possibly Related to Anesthesia: None Noted
--- NOTE | 2018-02-18 09:00 | PDTEE1 ---
LEANDRA Cardioversion Procedure Procedure: electrical cardioversion, transesophageal echo Indications: other (atrial flutter) Consent: signed and in chart Anticoagulation: xarelto Procedural Details: After consents for anesthesia, LEANDRA, and possible cardioversion were signed, and the procedure explained, the patient was placed on the left lateral side to facilitate ease of LEANDRA probe placement. Sedation was induced, and the LEANDRA probe was placed with standard views obtained. 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 Would ensure follow up with cardiology in 1-2 week (at which time an ECG should be performed). Patient Problems: Problems Problem Status Onset Atrial fibrillation and flutter Acute Chest pain Acute Primary osteoarthritis of right hip Acute
[2018-02-18] MEDS: Mirabegron [Myrbetriq] 25 MG PO SCH (09:47)
--- NOTE | 2018-02-18 11:16 | CPEKG ---
Test Reason : OPEN Blood Pressure : / mmHG Vent. Rate : 070 BPM Atrial Rate : 070 BPM P-R Int : 211 ms QRS Dur : 096 ms QT Int : 424 ms P-R-T Axes : -58 -33 007 degrees QTc Int : 458 ms Sinus or ectopic atrial rhythm Left axis deviation Abnormal R-wave progression, early transition Confirmed by Vic Caro ([id number]) on 02/18/2018 11:16:19 AM Referred By: Confirmed By:Vic Caro
--- NOTE | 2018-02-18 12:28 | PDDCSUM ---
Discharge Summary Discharge Summary: Date of Admission: 02/16/2018 Date of Discharge: 02/18/2018 Consults: Cardiology Procedures: DCCV Followup: Cardiology in 1 week Hospital Course Problem List: A Flutter with RVR - Hx of A Fib, on Metoprolol and Xarelto - Elevated HR on admission, s/p diltiazem bolus then gtt with improvement - Cardiology consulted, Dr. Caro, s/p DCCV this AM with conversion to NSR - Continue home Xarelto, Metoprolol 25 mg BID Chest Pressure - Reports substernal burning, improved s/p Zantac - Had an episode of chest pain overnight which improved with Nitro - Cardiology ordered MPS, negative - Trop negative, EKG without acute ischemic changes HLD - Continue home statin BPH - Continue Avodart and Flomax CKD Stage 3 - Appears to be at baseline Time spent on discharge was >35 minutes with >50% of time spent on patient education and counseling.
== END 2018-02-18 11:30 | disposition home or self-care (01) | DRG 310 ==
LOC: F2W 22:25 → OBSVTOIN 02-16 16:05
PROVIDERS: ADMIT Internal Medicine; ATTEND Internal Medicine
PROC: 5A2204Z Restoration of Cardiac Rhythm, Single (ICD-10-PCS; principal; 2018-02-18)
PROC: B245ZZ4 Ultrasonography of Left Heart, Transesophageal (ICD-10-PCS; principal; 2018-02-18)
DX: I48.92 Unspecified atrial flutter (principal); R07.89 Other chest pain; I12.9 Hypertensive chronic kidney disease with stage 1 through stage 4 chronic kidney disease, or unspecified chronic kidney disease; N18.3 Chronic kidney disease, stage 3 (moderate); E03.9 Hypothyroidism, unspecified; N40.0 Benign prostatic hyperplasia without lower urinary tract symptoms; E78.5 Hyperlipidemia, unspecified; I71.9 Aortic aneurysm of unspecified site, without rupture; I48.0 Paroxysmal atrial fibrillation; Z79.01 Long term (current) use of anticoagulants; Z86.718 Personal history of other venous thrombosis and embolism; Z96.653 Presence of artificial knee joint, bilateral; Z96.642 Presence of left artificial hip joint
CPT/HCPCS: 84484-PO; 96374; A9500; G0378; J0461; J2704; J2785